=== PATIENT | male | born 1995 | race Asian ===

== ENCOUNTER 2016-02-29 10:28 | Day surgery (SDC) | payer OTHER ==
[2016-02-28 13:10] VITALS: BMI 32.8
[2016-02-29] MEDS ORDERED: PROPOFOL 20 ML ONE ×2 (12:28)
[2016-02-29] MEDS ORDERED: LIDOCAINE HCL/PF 1% SDV 5ML VIAL ONE (12:28)
[2016-02-29 13:16] VITALS: TEMP 98.2
[2016-02-29 15:27] VITALS: BP 124/74; PULSE 83
--- NOTE | 2016-02-29 16:11 | PN ---
Progress Note (short form) - Note Progress Note: ZHENG was completed today. Full report to follow. Pt. tolerated procedure well. There were no complications. No evidence of a pfo or atrial septal aneursym. No left atrial or left atrial appendage thrombus. No evidence of endocarditis. normal aorta. grossly normal biventricular function. trace mr/tr/ar. normal trileaflet aortic valve.
== END 2016-02-29 14:10 | disposition home or self-care (01) ==
LOC: JASU-ENDO 10:28
PROVIDERS: ATTEND Internal Medicine Cardiovascular Disease
PROC: B246ZZ4 Ultrasonography of Right and Left Heart, Transesophageal (ICD-10-PCS; principal; 2016-02-29 11:00)
DX: I51.89 Other ill-defined heart diseases (principal)
CPT/HCPCS: 93312; 93325